=== PATIENT | female | born 1970 | race Caucasian/White ===

== ENCOUNTER 2017-11-20 19:32 | Emergency (ER) | payer BC ==
[2017-11-21] MEDS: MAGNESIUM SULFATE 2 GM/50 ML 50 ML IVPB (01:44)
[2017-11-21] MEDS: METHYLPREDNISOLONE 125 MG INJ IV (01:44)
[2017-11-21] MEDS: ALBUTEROL 0.5% (NEB) 2.5 MG/0.5 ML AMP INH (01:45)
[2017-11-21] MEDS: IPRATROPIUM (NEB) 0.5 MG/2.5 ML AMP INH (01:50)
[2017-11-21] MEDS: SOD CHLORIDE 0.9% 1,000 ML IV (01:52)
== END 2017-11-21 04:30 | disposition home or self-care (01) ==
LOC: FTE 19:32
DX: J45.41 Moderate persistent asthma with (acute) exacerbation (principal)
CPT/HCPCS: 71045; 94644; 96374; 96375; 99284-25